=== PATIENT | female | born 1970 ===

== ENCOUNTER 2017-09-30 06:00 | Day surgery (SDC) | payer OTHER ==
[2017-09-30] MEDS ORDERED: PERCOCET 5-3251 EACH PO (10:50)
[2017-09-30] MEDS ORDERED: CIPRO500 MG PO (10:54)
== END 2017-09-30 16:50 | disposition home or self-care (01) ==
LOC: CIR.AMB 06:00
DX: N81.11 Cystocele, midline (principal); N39.3 Stress incontinence (female) (male)